=== PATIENT | male | born 1985 | race Two or more races ===

== ENCOUNTER → 2021-12-09 | Emergency (ER) | payer BC ==
[~2021-12-09] VITALS: Ht 182.9 cm; Wt 95.3 kg
[2021-12-09 20:03] VITALS: BP 152/81
--- NOTE | 2021-12-09 20:03 | NUR ---
BIBS DIFFICULTY BREATHING - COVID POSITIVE THURSDAY SATTING 98% ON RA
--- NOTE | 2021-12-09 20:20 | NUR ---
Patient discharged to home in stable condition. Written and verbal after care instructions given. Patient verbalizes understanding of instruction. PT ambulatory with a steady gait
== END | disposition home or self-care (01) ==
LOC: ER 19:53
DX: U07.1 COVID-19 (principal)